=== PATIENT | male | born 1955 | race Caucasian/White ===

== ENCOUNTER 2020-07-07 07:07 | Outpatient (RCR) | payer OTHER, SELFPAY ==
[2020-07-07] MEDS: COVID-19 VACC, MRNA(PFIZER)/PF 30 MCG/0.3 ML SYRINGE IM (15:51)
[2020-07-28] MEDS: COVID-19 VACC, MRNA(PFIZER)/PF 30 MCG/0.3 ML SYRINGE IM (15:23)
== END 2020-07-07 23:59 ==
LOC: IMMUN 07:07
PROVIDERS: PCP Internal Medicine; Referring Provider Family Medicine; Visit Provider Family Medicine
DX: Z23 Encounter for immunization (principal)
CPT/HCPCS: 0001A; 0002A; 91300

== ENCOUNTER 2022-12-27 08:25 | Day surgery (SDC) | payer MEDICARE, OTHER, SELFPAY ==
--- NOTE | 2022-12-27 08:56 | PCM.HP.STD ---
HPI - General General Date of Admission: 12/27/22 Date of Service: 12/27/22 Chief Complaint: Screening colonoscopy HPI Narrative MALIA SIGALA, is a 67 M who presents today for screening colonoscopy. He has not had abdominal pain. No bloating. Denies any chest pain or shortness of breath. He is on amlodipine 2 g atorvastatin 40 mg, lisinopril grams, metformin 1000 mg, Ozempic, vitamin D and zinc. Past med positive for type 2 diabetes, obesity, hypertension, hyperlipidemia. He had a colonoscopy approximately 10 years ago but it was no abnormalities found when it colonoscopy exam except for diverticular disease. All other 16 review systems negative except those mentioned as per above mentioned HPI. [facility] Medical History Alcohol use Arthritis Colon, diverticulosis CPAP (continuous positive airway pressure) dependence Diabetes Essential (primary) hypertension Former smoker High cholesterol Hx of fracture of nose Hyperlipidemia, unspecified JODEE (obstructive sleep apnea) Psoriasis Sleep apnea Type 2 diabetes mellitus without complications Wears dentures Wears glasses Wears hearing aid Home Medications Bacillus coagulans 800 million cell tablet (Digestive Advantage Probiotics-Prebiotic) 2 cell PO BID 08/14/22 [History Last Taken Unknown] amlodipine 5 mg tablet (Norvasc) 5 mg PO DAILY 08/14/22 [History Last Taken Unknown] atorvastatin 40 mg tablet (Lipitor) 40 mg PO DAILY 08/14/22 [History Last Taken Unknown] chlorthalidone 25 mg tablet 25 mg PO DAILY 08/14/22 [History Last Taken Unknown] fish, borage, flaxseed oils-omega 3,6,9 cb #1 400 mg-400 mg-400 mg cap (Triple [place] 3-6-9) 1 cap PO BID 08/14/22 [History Last Taken Unknown] lisinopril 20 mg tablet 20 mg PO BID 08/14/22 [History Last Taken Unknown] metformin 500 mg tablet 1,000 mg PO BID 08/14/22 [History Last Taken Unknown] saw palmetto 450 mg capsule 450 mg PO BID 08/14/22 [History Last Taken Unknown] semaglutide 0.25 mg or 0.5 mg (2 mg/1.5 mL) subcutaneous pen injector (Ozempic) 1 mg subcut QWEEK 08/14/22 [History Last Taken Unknown] vitamin D3 1,250 mcg (50,000 unit)-vitamin K2 200 mcg capsule 1 cap PO DAILY 08/14/22 [History Last Taken Unknown] zinc gluconate 10 mg lozenges 10 mg PO DAILY 08/14/22 [History Last Taken Unknown] Allergy/AdvReac Type Severity Reaction Status Date / Time No Known Allergies Allergy Verified 12/25/22 08:45 Family History (Updated 08/14/22 @ 14:05 by Naomi Murdock) Unknown No problems noted. Surgical History History of colonoscopy History of vasectomy Social History (Updated 08/14/22 @ 14:06 by Naomi Murdock) household members: spouse current occupational status: employed Smoking Status: Former smoker ROS Review of Systems ROS Unobtainable: other Constitutional Constitutional: Denies fatigue, fever(s), poor appetite, weight gain or weight loss ENT HEENT: Denies mouth lesions Cardiovascular Cardiovascular: Denies abdominal bloating, abdominal edema or abdominal pain Respiratory/Chest Respiratory/Chest: Denies change in mental status, change in phlegm color, chest congestion or chest tightness Gastrointestinal Gastrointestinal: Denies belching, bloating, change in bowel habits, change in stool character, chewing difficulty, coffee ground emesis, constipation, cramping, diarrhea, dyspepsia, dysphagia, early satiety, excessive flatus, fecal incontinence, heartburn, hematemesis, hematochezia, hemorrhoids, loose stools, melena, nausea, odynophagia, rectal bleeding, tenesmus, vomiting or weight changes Genitourinary Genitourinary: Denies abdominal discomfort, burning urination or itching Musculoskeletal Musculoskeletal: Reports as per HPI; Denies muscle weakness or myalgias Integumentary Integumentary: Denies jaundice Neurologic Neurologic: Denies lack of coordination or weakness Psychiatric Psychiatric: Denies confusion, depression, memory loss, mood swings, paranoia or suicidal ideation Endocrine Endocrinology: Denies systems reviewed and no addt'l complaints, except as documented Hematologic/Lymphatic Hematologic/Lymphatic: Denies anemia, easy bleeding, easy bruising or lymphadenopathy Allergic/Immunologic Allergic/Immunologic: Denies systems reviewed and no addt'l complaints, except as documented Physical Exam Const alert, oriented x3, no apparent distress, healthy appearing and well nourished General Appearance: cooperative, comfortable, well kempt and well developed Orientation / Consciousness: awake and oriented to person HEENT Head and Scalp: normocephalic and atraumatic Face and Sinus: normal facial exam Mouth: oral and palatal mucosa normal Eyes General Eye: normal appearance of both eyes Neck full ROM Lymph Lymphatic: no lymphadenopathy noted Chest inspection of chest normal Resp normal respiratory effort and no use of accessory muscles Cardio regular rate and regular rhythm GI normal to inspection, nondistended, normoactive bowel sounds, soft to palpation, non-tender, non-distended and no masses Auscultation: normoactive bowel sounds Palpation: soft Percussion: normal to percussion Rectal Exam: visual inspection normal and normal sphincter tone no CVA tenderness Back/Spine no CVA tenderness and normal ROM Extremity normal to inspection Peripheral Pulses: Yes pulses 2+ throughout Skin no rashes or lesions noted General Skin Exam: no breakdown, elasticity normal and turgor normal Neuro oriented x3 Motor Exam: strength 5/5 throughout Psych mental status grossly normal Appearance: grossly normal Attitude: calm Activity / Motor Behavior: appropriate eye contact Speech: normal speech Thought Process: normal thought process Thought Content: normal thought content Attention / Concentration: attention grossly intact Memory / Cognition: memory grossly intact Insight: insight good Judgement: judgement good Assessment & Plan Assessment/Plan (1) Encounter for screening for malignant neoplasm of colon: PLAN: He was explained alternatives, risk, benefits including not withstanding bleeding, infection, sepsis, perforation, need for emergent surgery . He will have an ASA of 3 for the procedure.
[2022-12-27] MEDS: Lactated Ringers 1,000 ML 15 ML IV (09:03)
[2022-12-27 09:16] VITALS: BP 112/69; PULSE 63; RESP 17; TEMP 36.6; O2SAT 100; BMI 35.2
--- NOTE | 2022-12-27 09:30 | COLBX_PTH ---
PATIENT: MALIA SIGALA LOC: EN U#:[id number] AGE/SX: 67/M ROOM: RE12/27/[address]: Dr. Fernando Marinelli DO : 1955 BED: DIS: 12/27/2022 SPEC #: [id number] RECD: 12/27/22 11:47 STATUS: ANABEL REMacarena #: [id number] TRU: 12/27/22 09:[address]: Fernando Marinelli DEPT: SURGICAL PATHOLOGY RECD BY: Dee Dee Gabriel ENTERED: 12/27/22 13:13 SP TYPE: COLON BX OTHR DR: Dr. Alyssa Pierson DO Tissues: COLON BIOPSY Procedures: Surgery Specimen Level IV HEADER OPERATION: Colonoscopy - open access (MAC) and polypectomy PRE-OP DIAGNOSIS: Screening TISSUE SUBMITTED: Hepatic flexure polyp MICROSCOPIC DIAGNOSIS Hepatic flexure polyp, polypectomy: Tubular adenoma. DELORIS:chantell 12/28/2022 MICROSCOPIC DESCRIPTION Slides are reviewed. GROSS DESCRIPTION Received in fixative is one container labeled with the patient's name and designated hepatic flexure polyp. The specimen consists of one irregular fragment of light whitehead soft tissue that measures 0.5 x 0.3 x 0.1 cm. The specimen is totally submitted in one cassette. / SJ:rg 12/27/2022 TC:1 CPT: 53418
--- NOTE | 2022-12-27 10:12 | OP.COLON_ITS ---
Patient Name: Ken Sellers Procedure Date: 12/27/2022 9:27 AM Date of : 1955 Age: 67 Procedure: Colonoscopy Indications: Screening for colorectal malignant neoplasm Providers: Fernando Marinelli DO Medicines: Monitored Anesthesia Care Patient Profile: This is a 67 year old male. Refer to note in patient chart for documentation of history and physical. Last Colonoscopy: 10 years ago. Complications: No immediate complications. Procedure: Pre-Anesthesia Assessment: - Prior to the procedure, a History and Physical was performed, and patient medications and allergies were reviewed. The risks and benefits of the procedure and the sedation options and risks were discussed with the patient. All questions were answered and informed consent was obtained. Patient identification and proposed procedure were verified by the physician in the pre-procedure area. Mental Status Examination: alert and oriented. Airway Examination: normal oropharyngeal airway and neck mobility. Prophylactic Antibiotics: The patient does not require prophylactic antibiotics. Prior Anticoagulants: The patient has taken no anticoagulant or antiplatelet agents. After reviewing the risks and benefits, the patient was deemed in satisfactory condition to undergo the procedure. The anesthesia plan was to use monitored anesthesia care (MAC). Immediately prior to administration of medications, the patient was re-assessed for adequacy to receive sedatives. The heart rate, respiratory rate, oxygen saturations, blood pressure, adequacy of pulmonary ventilation, and response to care were monitored throughout the procedure. The physical status of the patient was re-assessed after the procedure. After I obtained informed consent, the scope was passed under direct vision. Throughout the procedure, the patient's blood pressure, pulse, and oxygen saturations were monitored continuously. The colonoscope was introduced through the anus and advanced to the cecum, identified by appendiceal orifice and ileocecal valve. The colonoscopy was performed without difficulty. The patient tolerated the procedure well. The quality of the bowel preparation was adequate. The ileocecal valve, appendiceal orifice, and rectum were photographed. Scope In: 9:54:11 AM Scope Withdrawal Time 0 hours 8 minutes 17 seconds Scope Out: 10:06:20 AM Total Procedure Duration Time 0 hours 12 minutes 9 seconds Findings: The perianal and digital rectal examinations were normal. A 5 mm polyp was found in the hepatic flexure. The polyp was sessile. The polyp was removed with a cold snare. Resection and retrieval were complete. Verification of patient identification for the specimen was done. Estimated blood loss was minimal. Multiple small and large-mouthed diverticula were found in the recto-sigmoid colon and sigmoid colon. The exam was otherwise without abnormality on direct and retroflexion views. Impression: - One 5 mm polyp at the hepatic flexure, removed with a cold snare. Resected and retrieved. - Diverticulosis in the recto-sigmoid colon and in the sigmoid colon. - The examination was otherwise normal on direct and retroflexion views. Recommendation: - Discharge patient to home. - Resume previous diet. - Continue present medications. - Await pathology results. - Repeat colonoscopy in 5 years for surveillance. Procedure Code(s): --- Professional --- 61492, Colonoscopy, flexible; with removal of tumor(s), polyp(s), or other lesion(s) by snare technique CPT copyright 2021 [employer]. All rights reserved. The codes documented in this report are preliminary and upon executive vp review may be revised to meet current compliance requirements. Fernando Marinelli DO 12/27/2022 10:12:23 AM This report has been signed electronically. Number of Addenda: 0 Note Initiated On: 12/27/2022 9:27 AM
--- NOTE | 2022-12-27 10:12 | OP.CCLET_ITS ---
12/27/2022 Alyssa Pierson [address] [place] [address] Re : Colonoscopy procedure for Ken Sellers Dear Dr. Pierson This procedure was performed on November. My impressions and recommendations are as follows: Impressions : - One 5 mm polyp at the hepatic flexure, removed with a cold snare. Resected and retrieved. - Diverticulosis in the recto-sigmoid colon and in the sigmoid colon. - The examination was otherwise normal on direct and retroflexion views. Recommendations : - Discharge patient to home. - Resume previous diet. - Continue present medications. - Await pathology results. - Repeat colonoscopy in 5 years for surveillance. My findings are described in the full procedure note, which is enclosed. If I can be of further assistance, please feel free to contact me at . Sincerely, Fernando Marinelli, 12/27/2022 10:12:23 AM This report has been signed electronically.
[2022-12-27 10:13] VITALS: BP 112/69; BP 96/55; PULSE 57; RESP 16; TEMP 36.4; O2SAT 96
[2022-12-27 10:15] VITALS: BP 112/69; BP 95/54; PULSE 54; RESP 16; O2SAT 95
[2022-12-27 10:20] VITALS: BP 101/62; BP 112/69; PULSE 62; RESP 16; O2SAT 97
[2022-12-27 10:25] VITALS: BP 112/69; BP 98/66; PULSE 61; RESP 16; TEMP 36.4; O2SAT 94
[2022-12-27 10:43] VITALS: BP 112/69
[2022-12-27 11:47] LABS: Bedside Glucose 127 mg/dL (74-106)
== END 2022-12-27 11:08 | disposition home or self-care (01) ==
LOC: EN 08:38 → AC 08:38
PROVIDERS: PCP Internal Medicine; Referring Provider Internal Medicine; Visit Provider Internal Medicine Gastroenterology
PROC: 0DJD8ZZ Inspection of Lower Intestinal Tract, Via Natural or Artificial Opening Endoscopic (ICD-10-PCS; CPT 45378; principal; 2022-12-27 09:25)
DX: Z12.11 Encounter for screening for malignant neoplasm of colon (principal); E11.9 Type 2 diabetes mellitus without complications; D12.3 Benign neoplasm of transverse colon; K57.30 Diverticulosis of large intestine without perforation or abscess without bleeding; I10 Essential (primary) hypertension; E78.00 Pure hypercholesterolemia, unspecified; G47.33 Obstructive sleep apnea (adult) (pediatric); E66.9 Obesity, unspecified; Z68.35 Body mass index [BMI] 35.0-35.9, adult; Z79.84 Long term (current) use of oral hypoglycemic drugs; Z79.85 Long-term (current) use of injectable non-insulin antidiabetic drugs; Z79.899 Other long term (current) drug therapy; Z87.891 Personal history of nicotine dependence
CPT/HCPCS: 45385; 82962; 88305; J7120; J2405

== ENCOUNTER → 2025-03-01 | Outpatient (CLI) | payer MEDICARE, OTHER, SELFPAY ==
[2025-03-01 08:52] LABS: Mucous, Urine 0 SEEN /hpf (<or=2+); Red Blood Cells-Urine 0 SEEN /hpf (0-5); Squamous Epithelial Cells - UA 0 SEEN /hpf (0-5)
[2025-03-01 09:53] LABS: Hematocrit 46.7 % (40-54); Hemoglobin 15.3 g/dL (13.0-16.5); Immature Granulocytes Count 0.050 X10^3/uL (0.0-0.0); Mean Corp Hgb Conc 32.8 g/dL (32-36); Mean Corpuscular Volume 82.9 fL (80-94); Mean Platelet Vol. 9.5 fl (6.2-12.0); NRBC Flagged by Analyzer 0 % (0-5); Platelet Count 187 K/mm3 (150-450); RBC Distribution Width CV 12.8 % (11.6-14.6); RBC Distribution Width SD 38.5 fl (35.1-43.9); Red Blood Count 5.63 M/mm3 (4.6-6.2); White Blood Count 5.5 K/mm3 (4.4-11.0)
[2025-03-01 10:01] LABS: Color, Urine Yellow (Yellow); Glucose, Dipstick Normal (Normal); Ketone-Dipstick Negative (Negative); Leukocyte Esterase-Dipstick Negative /ul (Negative); Nitrite-Dipstick Negative (Negative); Occult Blood-Urine Negative /ul (Negative); Protein-Dipstick 15 mg/dl (Negative); Specific Gravity, Urine 1.010 (1.002-1.030); Urine Bilirubin Dipstick Negative (Negative)
[2025-03-01 10:31] LABS: Creatinine, Urine (random) 147.00 mg/dL (39.00-259.00); Microalbumin,Random Urine 25.5 mg/L (<20 mg/L)
[2025-03-01 10:35] LABS: AST(SGOT) 36 U/L (<=37); Alanine Aminotransfer ALT/SGPT 50 U/L (<=46); Albumin, Serum 4.7 g/dL (3.4-4.8); Alkaline Phosphatase 85 U/L (40-129); Anion Gap 10 (5-15); BUN 17 mg/dL (4-19); BUN/Creat Ratio 19.9 RATIO (10-20); Calcium,Total 10.0 mg/dL (7.6-11.0); Carbon Dioxide 28.2 mmol/L (21.0-32.0); Chloride 101 mmol/L (98-108); Cholesterol 115 mg/dL (<=200); Globulin 2.5 g/dL (2.2-4.2); Glucose 136 mg/dL (70-99); Low Density Lipoprotein Calc. 57 mg/dL; PSA,Total - Annual Screen 0.59 ng/mL (0.02-4.00); Potassium 4.1 mmol/L (3.3-5.1); Triglycerides 101 mg/dL; Very Low Density Lipoprotein 20 mg/dL (5-40); cholesterol:hdl ratio screen 2.93
== END | disposition home or self-care (01) ==
LOC: MTLAB 08:48
PROVIDERS: PCP Internal Medicine; Referring Provider Internal Medicine; Visit Provider Internal Medicine
DX: Z12.5 Encounter for screening for malignant neoplasm of prostate (principal); E11.9 Type 2 diabetes mellitus without complications; E78.5 Hyperlipidemia, unspecified
CPT/HCPCS: 36415; 80053; 80061; 81001; 82043; 82570; 83036; 84153; 84443; 85025; G0103